=== PATIENT | male | born 1945 | race Caucasian/White ===

== ENCOUNTER 2016-06-07 14:11 | Emergency (ER) | payer OTHER ==
[~2016-06-07] VITALS: Ht 177.8 cm; Wt 72.7 kg
[2016-06-07 14:11] VITALS: BP 161/92; PULSE 91; RESP 16; O2SAT 96
--- NOTE | 2016-06-07 14:18 | ED.REPORT ---
HPI-Allergic Reaction Date of Service Jun 07, 2016 ED Provider: Fernando Pollock MD A 70 year old male on CHARLA inhibitors presents to the ED with tongue swelling onset this morning. The swelling has remained constant over the past two hours. The patient's speaking and swallowing abilities are hindered. He denies trouble breathing or other symptoms. The patient has never had similar symptoms in the past. On arrival to the ED the patient was given 0.3 epi subQ left arm, IV push 50 mg Benadryl, and IV push 125 mg Solu-Medrol. Additional history is somewhat limited. Nursing Notes Stated Complaint: TONGUE SWELLING Nursing Notes Reviewed: Yes Allergies: Coded Allergies: lisinopril (Verified Allergy, Severe, Angioedema, 06/07/16) Profound tongue swelling Penicillins (Verified Allergy, Unknown, 06/07/16) General Time Seen by MD: 14:18 Chief Complaint Other (Swelling Tongue) Hx Obtained From: Patient Unable to Obtain Hx: Patient condition Arrived By: Walk-in Onset Occurred: 5 - 8 hours ago Symptom Duration: Since onset Progression Since Onset: Unchanged Severity: Current: No pain currently Severity: Maximum: No pain Associated with: Reports: Difficulty speaking, Difficulty swallowing, Denies: Throat swollen, Wheezing Pertinent Negative: Relieved by nothing Immunizations: Unknown Recent Healthcare: No recent doctor visit Similar Sx Previous: No Past Medical History Past Medical History Notes: History is somewhat limited due to patient's condition - 06/07/2016 Past Medical History On CHARLA inhibitors Past Surgical History None reported Smoking History Unknown if Ever Smoker Ambulatory Status Independent Review of Systems Review of Systems Note: + Trouble swallowing secondary to tongue swelling Constitutional: Denies: Fever Ears / Nose / Throat: Reports: Throat swelling Respiratory: Denies: Non-productive cough, Shortness of breath, Wheezing GI: Denies: Vomiting Neurologic: Reports: Unable to speak (Secondary to tongue swelling) Complete sys rev & neg: except as marked. Physical Exam Initial Vital Signs Vital Signs (First) Date Time Temp Pulse Resp B/P Pulse Ox O2 Delivery O2 Flow Rate FiO2 06/07/16 14:11 36.5 91 16 161/92 96 Room Air Initial VS: Reviewed Head / Eyes: Atraumatic, Normocephalic Neck: Supple, Full range of motion Neurologic: Alert, Oriented, Nonfocal Psychiatric: Mood/affect normal, Behavior normal, Normal thought content General/Constitutional: Awake, Alert Respiratory / Chest: Breath sounds NL, Breath sounds = bilat, No respiratory distress Cardiovascular: Heart rate NL, Regular rhythm, Heart sounds NL Skin: Warm, Dry ENT: Airway patent, Mucous membranes moist, No facial swelling Mouth: Positive: Tongue abnormal (Extremely swollen) Interpretation & Diagnostics Lab Results Interpretation Result Diagram: 06/07/16 1432 06/07/16 1432 Test 06/07/16 14:32 White Blood Count 22.4th/mm3 (3.8-10.1) Red Blood Count 5.34mil/mm3 (4.40-5.80) Hemoglobin 16.5g/dL (13.8-17.2) Hematocrit 46.4% (41.0-50.0) Mean Corpuscular Volume 86.9fL (81-100) Mean Corpuscular Hemoglobin 30.9pg (27.0-35.0) Mean Corpuscular Hemoglobin Concent 35.6% (32.0-37.0) Red Cell Distribution Width 12.8% (12.3-15.4) Platelet Count 315bil/L (150-400) Neutrophils (%) (Auto) 72.8% (40-74) Lymphocytes (%) (Auto) 16.6% (14-46) Monocytes (%) (Auto) 8.3% (4-12) Eosinophils (%) (Auto) 1.7% (0-5) Basophils (%) (Auto) 0.3% (0-3) Hold Purple Top Tube Received (Received) Hold Blue Top Tube Received (Received) Sodium Level 141mEq/L (134-144) Potassium Level 3.5mEq/L (3.5-5.2) Chloride Level 95mEq/L (97-108) Carbon Dioxide Level 25mmol/L (18-29) Blood Urea Nitrogen 19mg/dL (8-27) Creatinine 0.98mg/dL (0.76-1.27) Estimat Glomerular Filtration Rate 81mL/min (>59) Glucose Level 209mg/dL (60-99) Calcium Level 10.4mg/dL (8.5-10.1) Total Bilirubin 0.8mg/dL (0.0-1.2) Aspartate Amino Transf (AST/SGOT) 29U/L (0-50) Alanine Aminotransferase (ALT/SGPT) 27U/L (0-44) Alkaline Phosphatase 78U/L (25-160) Total Protein 8.2g/dL (6.4-8.4) Albumin 5.2g/dL (3.4-5.0) Hold Red Top Tube Received (Received) Hold [place] Top Tube Received (Received) Hold [place] Top Tube Received (Received) Re-Eval/Medical Decision Re-Evaluation/Progress #1: Time of Eval: 14:23 Patient Status: Condition improved Re-Evaluation/Progress Note: Patient rechecked. The swelling of his tongue has improved and he is speaking better. Re-Evaluation/Progress #2: Time of Eval: 14:47 Patient Status: Condition improved Re-Evaluation/Progress Note: Patient continues to improve. Discussed diagnosis, lab results, and plan for admit. Patient would prefer to leave AMA. Follow-up and return to the ER instructions given. Patient agrees with plan for care and all questions were addressed. Consultation : Referral / Consult Name: Ted Menendez MD Call Returned at: 14:35 Gut Snatcher: Agrees with eval, Agrees with plan Note: ENT: Will remain on standby if needed Counseled Regarding: Diagnosis, Need for follow-up, When/why to return to ED Discharge & Departure Primary Impression: Angioedema Encounter type: initial encounter Qualified Code: T78.3XXA - Angioneurotic edema, initial encounter Disposition: AGAINST MEDICAL ADVICE Discharge Condition All VS Reviewed: Yes Condition: Stable Additional Instructions: The swelling of your tongue is likely a condition known as angioedema. The most likely cause for this is the CHARLA inhibitor medication (lisinopril) that you are taking for blood pressure. You should never again take medication in this category for any reason. You should expect similar swelling to occur if you do. I strongly encourage to stay in the hospital for careful observation over the coming hours to ensure that you are not getting worse. If your tongue swells up again you may not be able to breathe causing or profound permanent disability. We have offered to hospitalization, you have declined this. You understand that you are leaving AGAINST MEDICAL ADVICE. Please also understand that you are free to return at any time for further care if you feel you are getting worse or need emergent medical evaluation for any reason. Referrals: [facility] Scribe Attestation Portions of this note were transcribed by Camille Olmstead. I, Dr. Pollock, personally performed the history, physical exam, and medical decision-making; I reviewed and confirmed the accuracy of the information in the transcribed note. Signed by: Sebastien Mesa, 06/07/2016, 16:43 copies to: [facility] Fernando Pollock MD Jun 07, 2016 14:18 CAMILLE OLMSTEAD Jun 07, 2016 14:21
[2016-06-07 14:24] VITALS: BP 161/92; PULSE 96; RESP 16; O2SAT 98
[2016-06-07] MEDS ORDERED: Famotidine Inj 20 MG in IV Premix 1 EACH IV ONE (14:25)
[2016-06-07 14:44] LABS: BASOPHILS % (AUTO) 0.3 % (0-3); EOSINOPHILS % (AUTO) 1.7 % (0-5); MONOCYTES % (AUTO) 8.3 % (4-12); Mean Corpuscular Hemoglobin 30.9 pg (27.0-35.0); Mean Corpuscular Volume 86.9 fL (81-100); NEUTROPHILS % (AUTO) 72.8 % (40-74); Platelet Count 315 bil/L (150-400)
[2016-06-07 14:47] VITALS: BP 109/58; PULSE 93; RESP 21; O2SAT 97
[2016-06-07 15:06] VITALS: BP 132/85; PULSE 74; RESP 18; O2SAT 97
[2016-06-07 15:27] VITALS: BP 137/65; PULSE 65; RESP 16; O2SAT 97
== END 2016-06-07 15:29 | disposition left against medical advice (07) ==
LOC: SED 15:00
DX: T78.3XXA Angioneurotic edema, initial encounter (principal); Y93.89 Activity, other specified; Y92.89 Other specified places as the place of occurrence of the external cause; Y99.8 Other external cause status; Z88.0 Allergy status to penicillin; Z88.8 Allergy status to other drugs, medicaments and biological substances
CPT/HCPCS: 36415; 80053; 85025; 96374; 99284; J3490